=== PATIENT | female | born 1970 | race Two or more races ===

== ENCOUNTER 2025-01-24 09:13 | Outpatient (CLI) | payer OTHER ==
[2025-01-24 10:16] LABS: BASO % 0.4 % (0.1-1.2); EOS # 0.04 (0.04-0.54); EOS % 0.9 % (0.7-7.0); LYMPH # 1.18 (1.18-3.74); LYMPH % 25.4 % (19.3-53.1); MEAN PLATELET VOLUME 10.90 fl (9.4-12.4); MONO # 0.35 (0.24-0.82); MONO % 7.5 % (4.7-12.5); NEUT # 3.05 (1.56-6.13); NEUT % 65.6 % (34.0-71.1); RED CELL DISTRIBUTION WIDTH 13.1 % (11.6-14.4)
[2025-01-24 10:54] LABS: ALT/SGPT 25.0 U/L (12-78); AST/SGOT 13.0 U/L (15-37); BILIRUBIN TOTAL 0.85 mg/dL (0.3-1.2); BILIRUBIN,CONJUGATED 0.18 mg/dL (0.0-0.2); BUN CREA RATIO 31.0 (7.0-25.0); CHOL HDL RATIO 2.4 (0-5.0); CREATININE SERUM 0.59 mg/dL (0.55-1.02); GFR 106.62; GLUCOSE FASTING 82.0 mg/dL (65-100); HDL 69.0 mg/dl (40-60); LDL 79.0 mg/dl (0-130); OSMOLALITY SERUM 282.0 MOSM/KG (275-295); TSH 0.861 uIU/mL (0.358-3.74); VLDL 20.0 (0-39)
== END 2025-01-24 09:16 | disposition home or self-care (01) ==
LOC: LAB 09:13
DX: E11.51 Type 2 diabetes mellitus with diabetic peripheral angiopathy without gangrene (principal); K92.1 Melena; K76.9 Liver disease, unspecified; E78.9 Disorder of lipoprotein metabolism, unspecified; E11.69 Type 2 diabetes mellitus with other specified complication; N95.9 Unspecified menopausal and perimenopausal disorder; E55.9 Vitamin D deficiency, unspecified; E03.9 Hypothyroidism, unspecified; I11.9 Hypertensive heart disease without heart failure; N63.0 Unspecified lump in unspecified breast

== ENCOUNTER 2025-01-26 11:10 | Outpatient (CLI) | payer OTHER ==
[2025-01-26 12:38] LABS: ob POSITIVE (NEGATIVE)
== END 2025-01-26 11:12 | disposition home or self-care (01) ==
LOC: LAB 11:10
DX: E11.51 Type 2 diabetes mellitus with diabetic peripheral angiopathy without gangrene (principal); K92.1 Melena; K76.9 Liver disease, unspecified; E78.9 Disorder of lipoprotein metabolism, unspecified; E11.69 Type 2 diabetes mellitus with other specified complication; N95.9 Unspecified menopausal and perimenopausal disorder; E55.9 Vitamin D deficiency, unspecified; E03.9 Hypothyroidism, unspecified; I11.9 Hypertensive heart disease without heart failure; N63.0 Unspecified lump in unspecified breast; N40.0 Benign prostatic hyperplasia without lower urinary tract symptoms; E29.1 Testicular hypofunction